=== PATIENT | female | born 1995 | race Two or more races ===

== ENCOUNTER 2017-01-19 13:55 | Emergency (ER) | payer OTHER ==
[2017-01-19 14:04] VITALS: TEMP 97.5
--- NOTE | 2017-01-19 15:01 | CPEKG ---
Heart Rate: 56 RR Interval: 1071 P-R Interval: 144 QRSD Interval: 102 QT Interval: 452 QTC Interval: 437 P [place]: 55 QRS [place]: 83 T Wave [place]: 30 EKG Severity - NORMAL ECG - EKG Impression: SINUS RHYTHM Electronically Signed By: Thomas Steel 19-Jan-2017 16:37:01
[2017-01-19] MEDS ORDERED: NS 1,000 ML IV ONE (15:38)
[2017-01-19 15:46] LABS: % IMMATURE GRANULYOCYTES 0.4 % (0.0-1.1); ABSOLUTE IMMATURE GRANULOCYTES 0.04 10^3/uL (0.00-0.10); ADD DIFF? NO; ADD MORPH? NO; ADD SCAN? NO; ATYPICAL LYMPHOCYTE FLAG 20 (0-99); FRAGMENT RBC FLAG 0 (0-99); HEMOGLOBIN 13.5 g/dL (12.6-16.3); LEFT SHIFT FLG 0 (0-99); LIPEMIA HEMOLYSIS FLAG 90 (0-99); MEAN CELL HEMOGLOBIN 30.2 pg (27.9-34.1); MEAN CELL HEMOGLOBIN CONCENTR. 33.8 g/dL (32.4-36.7); MEAN CELL VOLUME 89.5 fL (81.5-99.8); MEAN PLATELET VOLUME 10.4 fL (8.7-11.7); PLATELET CLUMPS FLAG 20 (0-99); PLATELET COUNT 151 10^3/uL (150-400); RED BLOOD CELL COUNT 4.47 10^6/uL (4.18-5.33)
[2017-01-19 16:09] LABS: ANION GAP 16 mEq/L (8-16); CARBON DIOXIDE 20 mEq/l (22-31); CHLORIDE 104 mEq/L (97-110); CREATININE 0.8 mg/dL (0.6-1.0); GLOMERULAR FILTRATION RATE > 60; GLUCOSE 80 mg/dL (70-100); POTASSIUM 3.8 mEq/L (3.5-5.2); SODIUM 140 mEq/L (134-144)
--- NOTE | 2017-01-19 17:12 | EDPHY ---
H & P Stated Complaint: syncope/fell hit face lac above r eye Time Seen by Provider: 01/19/17 14:46 HPI/ROS: Chief complaint: Passed out History of present illness: This is a 21-year-old female who presents to the emergency department for evaluation after passing out. Patient was sitting down for lunch when she started to feel unwell and lightheaded and subsequent fell off a stool onto the ground passing out. She did strike her head against the ground. She sustained a small laceration around the right eyebrow region. She did quickly regained consciousness. There is no report of seizure activity. Patient reports a mild headache around the region she struck her head against the ground. She denies other associated signs or symptoms including no cough, no trouble breathing, no chest pain, no abdominal pain, no fever or cold symptoms. She does state a few years ago she had a similar episode but did not seek medical care for it. Review of systems: A 10 point review of systems was obtained and other than described above was negative - Personal History LMP (Females 10-55): 1-7 Days Ago Current Tetanus/Diphtheria Vaccine: Yes - Medical/Surgical History Hx Asthma: No Hx Chronic Respiratory Disease: No Hx Diabetes: No Hx Cardiac Disease: No Hx Renal Disease: No Hx Cirrhosis: No Hx Alcoholism: No Hx HIV/AIDS: No Hx Splenectomy or Spleen Trauma: No Other PMH: Denies - Social History Smoking Status: Former smoker - Physical Exam Exam: General Appearance: Alert, nontoxic. Eyes: Pupils equal and round no pallor or injection. ENT, Mouth: Mucous membranes moist. No hemotympanum, no serra sign, no raccoon eyes. Respiratory: There are no retractions, lungs are clear to auscultation. Cardiovascular: Regular rate and rhythm. Gastrointestinal: Abdomen is soft and non tender, no masses, bowel sounds normal. Neurological: Alert and oriented x4. Cranial nerves 2-12 grossly intact. Strength and sensation intact and symmetrical. Skin: 1 cm laceration inferior to the right eyebrow. Musculoskeletal: Mild tenderness around the site of the laceration without crepitus or bony deformity. The rest of the face and head are nontender. The spine is nontender to palpation along its entire length without crepitus, bony deformity or step-off. Patient is moving all extremities without difficulty. She is ambulating well. Psychiatric: Patient is oriented X 3, there is no agitation. Constitutional: Initial Vital Signs Temperature (C) 36.4 C 01/19/17 14:01 Heart Rate 72 01/19/17 14:01 Respiratory Rate 18 01/19/17 14:01 Blood Pressure 91/40 L 01/19/17 14:01 O2 Sat (%) 98 01/19/17 14:01 O2 Delivery Mode Room Air Allergies/Adverse Reactions: No Known Allergies Allergy (Verified 01/19/17 14:00) Home Medications: Medication Instructions Recorded NK [No Known Home Meds] 02/12/15 Medical Decision Making Procedures: Procedure: Laceration repair. Verbal consent was obtained from the patient. The 1 cm laceration inferior to the right eyebrow was anesthetized in the usual fashion. The wound was irrigated, draped and explored to its base with a gloved finger. There were no deep structures involved. No tendon injury was identified. The wound was repaired with 6 0 Prolene, 4 simple interrupted sutures. The wound repair was simple. The procedure was performed by myself. ED Course/Re-evaluation: Patient is discussed with my secondary supervising physician Dr. Thomas Steel. Patient presents to the emergency department for a syncopal episode. She did sustain a head injury when she fell. On presentation she is nontoxic. Mildly hypotensive. Physical exam reveals a small laceration but no evidence of other significant trauma. Laboratory studies and EKG are unremarkable. She is IV hydrated. She is feeling well and her vital signs have improved. I do not appreciate evidence of significant causes of syncope. Further I do not appreciate evidence of severe trauma, I do not believe imaging studies including imaging of the head are warranted. Her wound has been cleaned, repaired and dressed. She is discharged home. She is asked to follow up with a primary care doctor for recheck this week. She is provided with referral information. Home care is discussed. Strict return precautions were given. Patient voiced understanding and agreement with plan. Differential Diagnosis: Limited to hypovolemic state, vasovagal, anemia, electrolyte disturbances, cardiac disturbances as well as traumatic injury from fall such as soft tissue injury, bony injury, intracranial injury - Data Points Laboratory Results: Laboratory Results 01/19/17 15:35 01/19/17 15:35 07/01/17 07/01/17 07/01/17 15:35 15:35 15:35 WBC 10.20 10^3/uL H 10^3/uL (3.80-9.50) RBC 4.47 10^6/uL 10^6/uL (4.18-5.33) Hgb 13.5 g/dL g/dL (12.6-16.3) Hct 40.0 % % (38.0-47.0) MCV 89.5 fL fL (81.5-99.8) MCH 30.2 pg pg (27.9-34.1) MCHC 33.8 g/dL g/dL (32.4-36.7) RDW 13.0 % % (11.5-15.2) Plt Count 151 10^3/uL 10^3/uL (150-400) MPV 10.4 fL fL (8.7-11.7) Neut % (Auto) 75.7 % H % (39.3-74.2) Lymph % (Auto) 17.2 % % (15.0-45.0) Carter % (Auto) 5.8 % % (4.5-13.0) Eos % (Auto) 0.5 % L % (0.6-7.6) Baso % (Auto) 0.4 % % (0.3-1.7) Nucleat RBC Rel Count 0.0 % % (0.0-0.2) Absolute Neuts (auto) 7.73 10^3/uL H 10^3/uL (1.70-6.50) Absolute Lymphs (auto) 1.75 10^3/uL 10^3/uL (1.00-3.00) Absolute Monos (auto) 0.59 10^3/uL 10^3/uL (0.30-0.80) Absolute Eos (auto) 0.05 10^3/uL 10^3/uL (0.03-0.40) Absolute Basos (auto) 0.04 10^3/uL 10^3/uL (0.02-0.10) Absolute Nucleated RBC 0.00 10^3/uL 10^3/uL (0-0.01) Immature Gran % 0.4 % % (0.0-1.1) Immature Gran # 0.04 10^3/uL 10^3/uL (0.00-0.10) Sodium 140 mEq/L mEq/L (134-144) Potassium 3.8 mEq/L mEq/L (3.5-5.2) Chloride 104 mEq/L mEq/L (97-110) Carbon Dioxide 20 mEq/l L mEq/l (22-31) Anion Gap 16 mEq/L mEq/L (8-16) BUN 19 mg/dL mg/dL (7-23) Creatinine 0.8 mg/dL mg/dL (0.6-1.0) Estimated GFR > 60 Glucose 80 mg/dL mg/dL (70-100) Calcium 10.0 mg/dL mg/dL (8.5-10.4) Beta HCG, Qual NEGATIVE Medications Given: Discontinued Medications Acetaminophen (Tylenol) 1,000 mg PO EDNOW ONE Stop: 01/19/17 17:34 Last Admin: 01/19/17 17:39 Dose: Not Given Sodium Chloride (Ns) 1,000 mls @ 0 mls/hr IV ONCE ONE PRN Reason: Wide Open Stop: 01/19/17 15:39 Last Admin: 01/19/17 15:38 Dose: 1,000 mls Ibuprofen (Motrin) 600 mg PO EDNOW ONE Stop: 01/19/17 17:34 Last Admin: 01/19/17 17:39 Dose: Not Given Departure - Departure Disposition: Home, Routine, Self-Care Clinical Impression: Syncope Qualifiers: Syncope type: unspecified Qualified Code(s): R55 - Syncope and collapse Facial laceration Qualifiers: Encounter type: initial encounter Qualified Code(s): S01.81XA - Laceration without foreign body of other part of head, initial encounter Condition: Good Instructions: Care For Your Stitches (ED), Laceration (ED), Syncope (ED), Acute Wounds (ED) Additional Instructions: Follow-up with a primary care doctor for continued evaluation and care Stitches to be removed in 7 days If symptoms worsen or new symptoms develop return to the emergency room for recheck Referrals: NONE *PRIMARY CARE P,. [Primary Care Provider] - As per Instructions [facility],. [Clinic] - As per Instructions Marlyn Amezquita MD [[facility] [place] - As per Instructions
[2017-01-19] MEDS ORDERED: IBUPROFEN 600 MG TAB PO ONE (17:33)
[2017-01-19] MEDS ORDERED: ACETAMINOPHEN 500 MG TAB PO ONE (17:33)
[2017-01-19 17:42] VITALS: BP 112/74; PULSE 76; RESP 18; O2SAT 98
== END 2017-01-19 17:42 | disposition home or self-care (01) ==
PROC: 0HQ1XZZ Repair Face Skin, External Approach (ICD-10-PCS; principal; 2017-01-19)
DX: S01.111A Laceration without foreign body of right eyelid and periocular area, initial encounter (principal); R55 Syncope and collapse; Z87.891 Personal history of nicotine dependence; W18.09XA Striking against other object with subsequent fall, initial encounter